=== PATIENT | male | born 1990 | race African-American/Black ===

== ENCOUNTER 2019-08-02 07:15 | Emergency (ER) | payer OTHER ==
[~2019-08-02] VITALS: Ht 177.8 cm; Wt 90.7 kg
[2019-08-02 07:27] VITALS: BP 119/70
--- NOTE | 2019-08-02 07:35 | NUR ---
AT BEDSIDE FOR EVAL.
--- NOTE | 2019-08-02 07:39 | NUR ---
RAPID STREP OBTAINED AND SENT TO LAB
--- NOTE | 2019-08-02 08:15 | NUR ---
CALLED LAB TO FOLLOW UP RAPID STREP RESULT.
[2019-08-02] MEDS ORDERED: HYDROCODONE/APAP 5/325MG 1 EACH TABLET ONE (08:36)
--- NOTE | 2019-08-02 08:49 | NUR ---
Patient discharged to home in stable condition. Written and verbal after care instructions given. Patient verbalizes understanding of instruction.
[2019-08-02] MEDS ORDERED: HYDROCODONE/APAP 5/325MG 1 EACH TABLET PO ONE (09:00)
== END 2019-08-02 08:49 | disposition home or self-care (01) ==
LOC: ER 07:21
DX: J02.9 Acute pharyngitis, unspecified (principal)
CPT/HCPCS: 86403-TC; 87070-TC